=== PATIENT | female | born 1955 | race Caucasian/White ===

== ENCOUNTER 2018-06-21 08:28 | Inpatient (IN) | payer BC ==
[~2018-06-21] VITALS: Ht 162.6 cm; Wt 70.3 kg
[~2018-06-21 08:28] MED LIST: ACIPHEX20 MG PO; ALIGN4 MG PO; NAPROSYN500 MG PO; PREMARIN0.625 MG PO; ULTRAM50 MG PO; ZANTAC150 MG PO; ZOLOFT50 MG PO
[2018-06-21 08:57] VITALS: BP 120/71
[2018-06-21 16:19] VITALS: BP 113/72
[2018-06-21 19:15] VITALS: BP 95/54
[2018-06-22] VITALS: BP 98/59
[2018-06-22 03:51] VITALS: BP 98/64
[2018-06-22 07:28] VITALS: BP 92/52
[2018-06-22] MEDS ORDERED: ZOFRAN4 MG PO (09:47)
[2018-06-22] MEDS ORDERED: ASPIR-LOW81 MG PO (11:13)
== END 2018-06-22 12:32 | disposition home or self-care (01) | DRG 483 ==
LOC: SDC 08:28 → 2SOUTH 11:45 → 2EAST 11:45 → ENRESERV 12:02 → 2EAST 13:12
PROC: 0RRJ0J6 Replacement of Right Shoulder Joint with Synthetic Substitute, Humeral Surface, Open Approach (ICD-10-PCS; principal; 2018-06-22)
DX: M19.011 Primary osteoarthritis, right shoulder (principal); K50.90 Crohn's disease, unspecified, without complications; K21.9 Gastro-esophageal reflux disease without esophagitis; F32.9 Major depressive disorder, single episode, unspecified; F41.9 Anxiety disorder, unspecified; Z87.891 Personal history of nicotine dependence
CPT/HCPCS: G0378; J0690; J1100; J1885; J2250; J2405; J2710; J2765; J2795; J3010; J7050; J7643; Q0175